=== PATIENT | male | born 1990 | race African-American/Black ===

== ENCOUNTER 2017-03-07 10:46 | Emergency (ER) | payer OTHER ==
[2017-03-07] MEDS ORDERED: HYDROcodone/Acetaminophen 5/325 mg Tablet ONE (11:53)
--- NOTE | 2017-03-07 12:00 | RAD ---
RIGHT KNEE 4 VIEWS: Date: 03/07/17 PROVIDED CLINICAL HISTORY: Right knee pain. FINDINGS: There is conspicuous patella ben, which may reflect patellar tendon and disruption. There is nonspe cific infrapatellar soft tissue swelling. There is corticated ossific density adjacent to the tibial tubercle suggesting sequelae of prior tibial tubercle apophysitis. There is no evidence for an acut e fracture or other acute osseous abnormality. IMPRESSION: Patella ben and infrapatellar soft tissue swelling suggesting patellar tendon disruption. Nonemerge nt MRI is recommended. POS: [facility]
== END 2017-03-07 12:28 ==
LOC: NAV ERS 10:46
DX: S89.91XA Unspecified injury of right lower leg, initial encounter (principal); Z87.891 Personal history of nicotine dependence; X50.1XXA Overexertion from prolonged static or awkward postures, initial encounter; Y93.67 Activity, basketball